=== PATIENT | female | born 1980 | race Caucasian/White ===

== ENCOUNTER 2025-02-08 20:24 | Emergency (ER) | payer OTHER ==
[~2025-02-08 20:24] MED LIST: Iopamidol 370 76% 100 ML VIAL ONE
[2025-02-08] MEDS ORDERED: Ondansetron PF 4 MG/2 ML Vial ONE (20:50)
[2025-02-08 20:56] LABS: #Basophils 0.1 thou/uL (0.0-0.2); #Eosinophils 0.1 thou/uL (0.0-0.7); #Lymphocytes 2.2 thou/uL (1.20-3.40); #Monocytes 0.9 thou/uL (0.11-0.59); #Neutrophils 7.9 thou/uL (1.40-6.50); %Basophils 1.0 % (0.0-1.0); %Eosinophils 1.0 % (0.0-10.0); %Lymphocytes 19.8 % (21.0-51.0); %Monocytes 7.7 % (0.0-10.0); %Neutrophils 70.6 % (42.0-75.0); Hematocrit 45.4 % (36.0-47.0); Hemoglobin 14.9 g/dL (12.0-16.0); Mean Corpuscular Hemoglobin 30.9 pg (27.0-31.0); Mean Corpuscular Volume 94.0 fl (78.0-98.0); Platelet Count 326 10x3/uL (130-400); Red Blood Cell (RBC) Count 4.83 mill/uL (4.20-5.40); White Blood Cell (WBC) Count 11.2 10x3/uL (4.8-10.8)
[2025-02-08 21:12] LABS: ALT (SGPT) 18 U/L (Less than 34); AST (SGOT) 19 U/L (11-34); Albumin 3.9 g/dL (3.1-4.5); Alkaline Phosphatase 49 U/L (40-110); Anion Gap 16 mmol/L (10-20); BUN (Urea Nitrogen) 12 mg/dL (7.0-18.7); Bilirubin, Total 0.5 mg/dL (0.3-1.2); Calc. Creatinine Clearance 0 mL/min (70-130); Calcium 9.1 mg/dL (7.8-10.44); Carbon Dioxide 23 mmol/L (22-29); Chloride 107 mmol/L (98-107); Globulin 3.1 g/dL (2.4-3.5); Glucose 103 mg/dL (70-105); Potassium 3.6 mmol/L (3.5-5.1); Sodium 142 mmol/L (136-145)
== END 2025-02-08 22:26 | disposition home or self-care (01) ==
LOC: MADERS 20:24
DX: S60.222A Contusion of left hand, initial encounter (principal); R10.9 Unspecified abdominal pain; R10.814 Left lower quadrant abdominal tenderness; Z86.2 Personal history of diseases of the blood and blood-forming organs and certain disorders involving the immune mechanism; V43.52XA Car driver injured in collision with other type car in traffic accident, initial encounter
CPT/HCPCS: 71260; 74177; 80053; 85025; 96374; 96375; J2405; J3010; Q9967